=== PATIENT | female | born 1970 | race American Indian/Alaskan Native ===

== ENCOUNTER 2017-12-04 10:16 | Outpatient (CLI) | payer OTHER ==
--- NOTE | 2017-12-04 11:01 | XRay Report ---
Bilateral knee: History: Bilateral knee pain. Findings: Narrowing of medial and patellofemoral compartments right and left knee joint. Sclerotic articular surfaces with peripheral osteophytes suggestive of moderate to severe degenerative changes. [id number] degenerative changes of the lateral compartments. No fracture dislocation or joint effusion. No soft tissue calcification Impression: Tricompartmental degenerative changes right and left knee.
== END 2017-12-04 10:17 | disposition home or self-care (01) ==
LOC: SPVIMAG 10:16
PROVIDERS: ATTEND Orthopaedic Surgery Sports Medicine
DX: M17.0 Bilateral primary osteoarthritis of knee (principal)